=== PATIENT | female | born 1970 | race Hispanic/Latino ===

== ENCOUNTER 2024-10-31 09:57 | Emergency (ER) | payer BC ==
[~2024-10-31] VITALS: Ht 157.5 cm; Wt 83.9 kg
--- NOTE | 2024-10-31 10:54 | HMCIMG ---
CT HEAD WITHOUT CONTRAST INDICATION: Fall, head contusion TECHNIQUE: Noncontrast axial helical CT images from the vertex through the skull base using 5 mm slice thickness without contrast material. CT was performed with one or more of the following dose reduction techniques: Automated exposure control, adjustment of the mA and/or kV according to patient size, or use of iterative reconstruction technique. COMPARISON: None FINDINGS: The cerebral and cerebellar hemispheres are age-appropriate in appearance. No evidence for abnormal extra-axial fluid collections or masses. The ventricles and sulci are normal in size and configuration. No evidence for intracranial parenchymal, epidural, or subdural hemorrhage, mass effect or midline shift. The quiñonez-white matter differentiation is well preserved. No secondary evidence to suggest acute ischemia. The brainstem and cerebellum appear normal. The visualized orbits appear unremarkable. The visible paranasal sinuses and mastoid air cells are clear. The calvarium appears normal. IMPRESSION: No acute intracranial process identified.
--- NOTE | 2024-10-31 11:15 | ERN ---
General Chief Complaint: Mechanical Fall Stated Complaint: FALL Time Seen by MD: 10:11 Time Seen by Midlevel: 10:11 Source: patient History of Present Illness Initial Comments The patient is a 54-year-old female with a past medical history of a stroke, type 2 diabetes, and hypertension presenting to the emergency department following a fall. The patient states she was sitting on a stool and lost her balance hit the back of her head this morning. She denies loss of consciousness. Denies being on any blood thinners. She noticed a hematoma to the right back side of her head and decided to report to the ER given her history of stroke. On arrival she has mild pain to the area but denies any focal weakness, numbness, tingling, vision changes, or any other symptoms at this time. Allergies: Coded Allergies: No Known Allergies (Unverified Allergy, Unknown, 10/31/24) Past Medical History Past Medical History: No Pertinent History, Diabetes-Type II, Hypertension, Stroke Past Surgical History: Other ROS Dictation CONSTITUTIONAL: Negative except for HPI HEAD/FACE: Negative except for HPI EENT: Negative except for HPI RESPIRATORY: Negative except for HPI GASTROINTESTINAL/ABDOMINAL: Negative except for HPI GENITOURINARY: Negative except for HPI MUSCULOSKELETAL: Negative except for HPI INTEGUMENTARY: Negative except for HPI NEUROLOGICAL/PSYCH: Negative except for HPI HEMATOLOGIC/LYMPHATIC: Negative except for HPI All Systems Negative, Except as noted above. 13 point review of systems assessed and all negative except for above. Physical Exam Physical Exam Dictation Vital Signs reviewed General Appearance: Alert, oriented x 3, no acute distress, well developed, nourished. Head and Face: Contusion to the right parietal Eyes: PERRL, pink conjunctivas, eyelid no trauma, anterior chamber with arcus senilis. Ears: Pinnas intact and no signs of trauma or erythema ear canals clear and no discharge TM no erythema Nose: No discharge, no bleeding. Oropharynx: Mouth normal, tongue pink, pharynx clear,no erythema, tonsils no exudates, no abscesses noted, mucous membrane moist Neck: Supple, non-tender, no thyromegaly, no masses, no JVD, no bruits Breast:Deferred Chest:No tenderness, no crepitus, no paradoxical movement, no retractions Lungs:Clear, well-ventilated, symmetric, no rales, no wheezing, no rhonchi, no stridor, good breath sounds bilaterally Heart: Regular rate, regular rhythm, no murmur, no gallops Vascular: no peripheral edema, Abdomen: Soft, positive bowel sounds, nondistended, no guarding, nontender, no rebound, no masses no hepatomegaly, no splenomegaly, no White's sign, no hernias. Rectal: Deferred Genital: Deferred Neurological: Normal speech, motor function intact, sensory function intact Musculoskeletal: Neck nontender, full range of motion, back nontender, full range of motion, Extremities: nontender, full range of motion Skin: Color pink, dry, no turgor, no rash, no lacerations, no abrasions, no contusions. Lymphatic: Deferred MDM MDM: The patient is a 54-year-old female with a past medical history of a stroke, type 2 diabetes, and hypertension presenting to the emergency department following a fall. The patient states she was sitting on a stool and lost her balance hit the back of her head this morning. She denies loss of consciousness. Denies being on any blood thinners. She noticed a hematoma to the right back side of her head and decided to report to the ER given her history of stroke. On arrival she has mild pain to the area but denies any focal weakness, numbness, tingling, vision changes, or any other symptoms at this time. On physical examination patient is in no acute distress. She is alert and oriented x4. GCS of 15. She has a small contusion to the right parietal scalp. No lacerations noted. CT scan of the head obtained which reveals no acute intracranial bleed or skull fracture. The patient was observed in the ER for over 1 hour and has remained stable and asymptomatic. Patient will be discharged home with strict return precautions Differential diagnosis: Intracranial bleed, skull fracture, contusion There are no social concerns with this patient. Prescription drug management Prescriptions will include: None Medical management and examination interpretation discussions were had by me with other qualified healthcare professionals as indicated for the patient's care. ED Course Orders Procedure Category Date Status Time Ct Head/Brain W/O CT 10/31/24 Resulted Contrast 10:10 Vital Signs Date Time Temp Pulse Resp B/P (MAP) Pulse Ox O2 Delivery O2 Flow Rate FiO2 10/31/24 11:24 98.6 80 18 138/78 99 Room Air* 0 21 10/31/24 10:01 98.6 82 20 147/88 99 Room Air 10/31/24 10:01 98.6 82 20 147/88 99 Room Air* 0 21 DX & DISP Disposition: Discharge Departure Impression: Primary Impression: Scalp contusion Additional Impression: Fall Condition: Stable Additional Instructions: Your CT scan of the head does not show any evidence of a skull fracture or in tracranial bleed. Continue to monitor symptoms over the next several weeks. If you develop any neurological symptoms like weakness, altered gait, or severe headaches please report to the ER for further evaluation. Follow up with your primary care doctor in 2-3 days for repeat evaluation. Referrals: SELF,REFERRAL (PCP) Time of Disposition: 11:13 I have reviewed the case, and I agree with, Diagnosis and Plan I performed the substantive portion of the visit. I have reviewed and personally made and approve the management plan that is documented in the note by myself or the BENITA. I acknowledge for responsibility for the patient's management plan. HOSSEIN SNEED Oct 31, 2024 11:14 BALTAZAR FOX DO Nov 02, 2024 04:20
[2024-10-31 11:24] VITALS: BP 138/78; PULSE 80; RESP 18; TEMP 98.6; O2SAT 99
== END 2024-10-31 11:26 | disposition home or self-care (01) ==
LOC: EDH 09:57
DX: S00.03XA Contusion of scalp, initial encounter (principal); E11.9 Type 2 diabetes mellitus without complications; I10 Essential (primary) hypertension; Z86.73 Personal history of transient ischemic attack (TIA), and cerebral infarction without residual deficits; W17.89XA Other fall from one level to another, initial encounter; Y93.89 Activity, other specified; Y92.89 Other specified places as the place of occurrence of the external cause; Y99.8 Other external cause status
CPT/HCPCS: 70450; 99284